=== PATIENT | female | born 1950 | race Caucasian/White ===

== ENCOUNTER 2017-12-12 20:30 | Outpatient (CLI) | payer MEDICARE, OTHER | END 2017-12-12 20:31 | disposition home or self-care (01) | LOC: SLEEPLAB 20:30 | PROVIDERS: ATTEND Family Medicine | DX: G47.10 Hypersomnia, unspecified (principal); G47.9 Sleep disorder, unspecified; G47.33 Obstructive sleep apnea (adult) (pediatric); I10 Essential (primary) hypertension; E66.9 Obesity, unspecified; F41.8 Other specified anxiety disorders | CPT/HCPCS: 95810 ==

== ENCOUNTER 2018-01-09 20:30 | Outpatient (CLI) | payer MEDICARE, OTHER | END 2018-01-09 20:31 | disposition home or self-care (01) | LOC: SLEEPLAB 20:30 | PROVIDERS: ATTEND Family Medicine | DX: G47.10 Hypersomnia, unspecified (principal); E66.9 Obesity, unspecified; F41.8 Other specified anxiety disorders; I10 Essential (primary) hypertension; G47.33 Obstructive sleep apnea (adult) (pediatric) | CPT/HCPCS: 95811 ==

== ENCOUNTER 2018-05-22 14:42 | Outpatient (CLI) | payer MEDICARE, OTHER | END 2018-05-22 14:43 | disposition home or self-care (01) | LOC: BICMAMMO 14:42 | PROVIDERS: ATTEND Family Medicine | DX: Z12.31 Encounter for screening mammogram for malignant neoplasm of breast (principal); E89.40 Asymptomatic postprocedural ovarian failure | CPT/HCPCS: 77063; 77067 ==

== ENCOUNTER 2019-03-29 13:33 | Outpatient (CLI) | payer MEDICARE, OTHER ==
[~2019-03-29 13:33] MED LIST: Gadobenate Dimeglumine 529 MG/1 ML (20ML VIAL) ONE
--- NOTE | 2019-03-29 15:28 | MRI ---
MRI LUMBAR SPINE WITH AND WITHOUT CONTRAST: HISTORY: Lumbar radiculopathy, left lower extremity radiculopathy. COMPARISON: None. FINDINGS: Conus medullaris is normal in morphology and terminates at the L1-2 level. Bilateral renal cysts are incidentally visualized. L1-2:Central zone annular fissure. Mild concentric disc bulge with effacement of the ventral thecal s ac although no high-grade central canal or left foraminal stenosis. There is a superimposed right subarticular disc protrusion with potential for impingement of the traversing right L2 nerve root as well as mild right foraminal stenosis. L2-3:Right foraminal disc protrusion with mild right foraminal stenosis. There is no significant comp romise of the central canal or left neural foramen. L3-4:Broad-based disc osteophyte complex with moderate central canal stenosis. There are synovial cys ts on the left, 4 mm in diameter. Associated moderate bilateral facet osteoarthritis is present. Mild right foraminal narrowing. No high-grade left foraminal stenosis. L4-5:Moderate central canal stenosis. There is broad-based disc osteophyte. No high-grade foraminal s tenosis. There is moderate bilateral degenerative facet hypertrophy. L5-S1:Right asymmetric broad-based disc osteophyte with mild central canal stenosis. Minimal right ne ural foraminal narrowing. No high-grade left foraminal stenosis. There is moderate to severe bilateral degenerative facet hypertrophy. Left side posterior, extraspinal synovial cyst formation pr esent. Postcontrast imaging reveals no pathologic intramedullary enhancement or mass-producing enhancement o f the vertebral canal. IMPRESSION: Multilevel degenerative change throughout the lumbar spine as outlined above. Transcribed Date/Time: 03/29/2019 3:41 PM
== END 2019-03-29 13:34 | disposition home or self-care (01) ==
LOC: BICMRI 13:33
PROVIDERS: ATTEND Family Medicine
DX: M47.26 Other spondylosis with radiculopathy, lumbar region (principal)
CPT/HCPCS: 72158; A9577

== ENCOUNTER 2021-09-01 11:51 | Outpatient (CLI) | payer MEDICARE, OTHER | END 2021-09-01 11:52 | disposition home or self-care (01) | LOC: BICMAMMO 11:51 | PROVIDERS: ATTEND Family Medicine | DX: Z12.31 Encounter for screening mammogram for malignant neoplasm of breast (principal); Z91.89 Other specified personal risk factors, not elsewhere classified | CPT/HCPCS: 77063; 77067 ==

== ENCOUNTER 2022-07-06 08:34 | Outpatient (CLI) | payer MEDICARE, OTHER ==
[2022-07-06] MEDS ORDERED: Iopamidol 370 76% 100 ML VIAL ONE (12:52)
== END 2022-07-06 08:35 | disposition home or self-care (01) ==
LOC: CT 08:34
DX: J44.9 Chronic obstructive pulmonary disease, unspecified (principal); K44.9 Diaphragmatic hernia without obstruction or gangrene; I70.0 Atherosclerosis of aorta; I25.10 Atherosclerotic heart disease of native coronary artery without angina pectoris; R91.1 Solitary pulmonary nodule; Z87.891 Personal history of nicotine dependence
CPT/HCPCS: 71260; 82565; Q9967

== ENCOUNTER 2022-09-03 13:55 | Outpatient (CLI) | payer MEDICARE, OTHER | END 2022-09-03 13:56 | disposition home or self-care (01) | LOC: BICMAMMO 13:55 | PROVIDERS: ATTEND Family Medicine | DX: Z12.31 Encounter for screening mammogram for malignant neoplasm of breast (principal); M85.89 Other specified disorders of bone density and structure, multiple sites; Z91.89 Other specified personal risk factors, not elsewhere classified | CPT/HCPCS: 77063; 77067; 77080 ==

== ENCOUNTER 2023-12-13 12:56 | Outpatient (CLI) | payer MEDICARE, OTHER | END 2023-12-13 12:57 | disposition home or self-care (01) | LOC: BICCT 12:56 | PROVIDERS: ATTEND Internal Medicine | DX: Z12.2 Encounter for screening for malignant neoplasm of respiratory organs (principal); J44.9 Chronic obstructive pulmonary disease, unspecified; I25.10 Atherosclerotic heart disease of native coronary artery without angina pectoris; Z87.891 Personal history of nicotine dependence | CPT/HCPCS: 71271 ==

== ENCOUNTER → 2024-09-26 | Outpatient (CLI) | payer MEDICARE, OTHER | LOC: CT 13:06 | PROVIDERS: ATTEND Internal Medicine | DX: J44.9 Chronic obstructive pulmonary disease, unspecified (principal); R91.8 Other nonspecific abnormal finding of lung field; J43.9 Emphysema, unspecified | CPT/HCPCS: 71250 ==

== ENCOUNTER 2024-10-25 12:46 | Outpatient (CLI) | payer MEDICARE, OTHER | END 2024-10-25 12:47 | disposition home or self-care (01) | LOC: BICMAMMO 12:46 | PROVIDERS: ATTEND Family Medicine | DX: Z12.31 Encounter for screening mammogram for malignant neoplasm of breast (principal); Z13.820 Encounter for screening for osteoporosis; M85.851 Other specified disorders of bone density and structure, right thigh; M85.852 Other specified disorders of bone density and structure, left thigh; Z91.89 Other specified personal risk factors, not elsewhere classified | CPT/HCPCS: 77063; 77067; 77080 ==

== ENCOUNTER 2025-09-05 10:20 | Outpatient (CLI) | payer MEDICARE, OTHER | END 2025-09-05 10:21 | disposition home or self-care (01) | LOC: BICCT 10:20 | PROVIDERS: ATTEND Internal Medicine | DX: Z12.2 Encounter for screening for malignant neoplasm of respiratory organs (principal); J43.9 Emphysema, unspecified; Z87.891 Personal history of nicotine dependence | CPT/HCPCS: 71271 ==